=== PATIENT | male | born 1940 | race Two or more races ===

== ENCOUNTER 2021-09-22 06:00 | Day surgery (SDC) | payer OTHER ==
[~2021-09-22 06:00] MED LIST: ECOTRIN81 MG PO; LOPRESSOR25 MG PO; NORVASC2.5 M1 PO; VASOTEC2.5 MG PO
== END 2021-09-22 11:20 | disposition home or self-care (01) ==
LOC: CIR.AMB 06:00
PROVIDERS: ATTEND Colon & Rectal Surgery
DX: C44.590 Other specified malignant neoplasm of anal skin (principal); Z85.048 Personal history of other malignant neoplasm of rectum, rectosigmoid junction, and anus; I10 Essential (primary) hypertension; E78.5 Hyperlipidemia, unspecified; Z87.891 Personal history of nicotine dependence; Z79.82 Long term (current) use of aspirin; Z20.822 Contact with and (suspected) exposure to COVID-19